=== PATIENT | female | born 1950 | race Caucasian/White ===

== ENCOUNTER 2021-06-01 09:39 | Outpatient (CLI) | payer MEDICARE, SELFPAY ==
--- NOTE | 2021-06-01 09:30 | ECG_ITS ---
Measurements Intervals [place] Rate: 101 P: 67 WA: 143 QRS: 34 QRSD: 90 T: 57 QT: 327 QTc: 424 Interpretive Statements SINUS TACHYCARDIA POSSIBLE LEFT ATRIAL ENLARGEMENT LOW QRS VOLTAGE IN PRECORDIAL LEADS BASELINE ARTIFACT- I, III, AVL, AVF BORDERLINE ECG Electronically Signed On 06-01-2021 12:00:32 CDT by Fermín Plaza D.O.
[2021-06-01 10:33] LABS: Anion Gap 15 mmol/L (8-16); Blood Urea Nitrogen 14 mg/dL (7-17); Calcium 10.1 mg/dL (8.4-10.2); Carbon Dioxide 23 mmol/L (22-30); Chloride 95 mmol/L (98-107); Estimated Glomerular Filt Rate > 60; Glucose 199 mg/dL (65-105); Sodium 133 mmol/L (137-145)
== END 2021-06-01 09:40 | disposition home or self-care (01) ==
LOC: ANHSURGERY 09:43
PROVIDERS: Anesthesiology; PCP Emergency Medicine; Visit Provider Urology
DX: E11.9 Type 2 diabetes mellitus without complications (principal); I10 Essential (primary) hypertension; Z01.818 Encounter for other preprocedural examination; R94.31 Abnormal electrocardiogram [ECG] [EKG]
CPT/HCPCS: 36415; 80048; 87086; 87088; 93005

== ENCOUNTER 2021-06-05 01:49 | Day surgery (SDC) | payer MEDICARE, SELFPAY ==
--- NOTE | 2021-05-27 12:17 | P.HP_ITS ---
H&P: HPI History of Present Illness Date/Time: 05/27/21 12:17 cystocele Chief Complaint: cystocele Review of Systems Review of Systems: All systems reviewed & are unremarkable except as noted in HPI and below [facility] Social History Social History Smoking status: Never smoker Alcohol intake: current Meds Home Medications and Allergies Allergies Allergy/AdvReac Type Severity Reaction Status Date / Time codeine Allergy Severe HEADACHES, Verified 05/27/17 07:40 RASH cortisone Allergy Severe RASH AND Verified 05/27/17 07:40 ITCHING Exam Const: General: cooperative and healthy appearing HENMT: Head: normal to inspection Face and sinus: normal facial exam Eyes: General: appearance normal, both eyes and all related structures Resp: Effort & Inspection: tachypneic : Bimanual Exam- Adnexa, other: cystocele and apex supported Back/Spine/Pelvis: Back: no CVA tenderness Skin: General skin exam: normal color Assessment and Plan Assessment and plan (1) Cystocele: Qualifiers: Cystocele location: midline Qualified Code(s): N81.11 - Cystocele, midline Status: Acute Assessment and Plan: cystocele repair
[2021-05-31 13:38] VITALS: BMI 29.9
--- NOTE | 2021-06-04 14:58 | PM.IMHP ---
H&P: HPI History of Present Illness Date/Time: 06/04/21 14:58 cystocele Robotic SCP/TOT in 2017 Chief Complaint: cystocele Review of Systems Review of Systems: All systems reviewed & are unremarkable except as noted in HPI and below PMF[facility] Social History Social History Smoking status: Never smoker Alcohol intake: current Alcohol use details: TWO DRINKS MONTH Spiritual care concerns: No Meds Home Medications and Allergies Home Medications Medication Instructions Recorded Confirmed Type calcium carbonate [Calcium 600] 1,200 mg PO DAILY 05/31/21 05/31/21 History cetirizine-pseudoephedrine 1 tablet PO BID 05/31/21 05/31/21 History [Zyrtec-D] cholecalciferol (vitamin D3) 50 mcg PO DAILY 05/31/21 05/31/21 History doxycycline hyclate 50 mg PO DAILY 05/31/21 05/31/21 History ezetimibe 10 mg PO QPM 05/31/21 05/31/21 History fenofibrate micronized 134 mg PO QPM 05/31/21 05/31/21 History hydrochlorothiazide 25 mg PO DAILY 05/31/21 05/31/21 History magnesium 15 mg PO DAILY 05/31/21 05/31/21 History metformin 1,000 mg PO DAILY 05/31/21 05/31/21 History metformin 500 mg PO QPM 05/31/21 05/31/21 History pmyazsqobcmp-pbvk-rudua acid 1 tablet PO DAILY 05/31/21 05/31/21 History [Centrum Complete] niacin [Niaspan Extended-Release] 1,000 mg PO QPM 05/31/21 05/31/21 History omeprazole 20 mg PO DAILY 05/31/21 05/31/21 History quinapril 40 mg PO DAILY 05/31/21 05/31/21 History sertraline 50 mg PO HS 05/31/21 05/31/21 History zinc 50 mg PO DAILY 05/31/21 05/31/21 History Allergies Allergy/AdvReac Type Severity Reaction Status Date / Time codeine Allergy Severe HEADACHES, Verified 05/31/21 13:26 RASH cortisone Allergy Severe RASH AND Verified 05/31/21 13:26 ITCHING Exam Const: General: cooperative and healthy appearing HENMT: Head: normal to inspection Face and sinus: normal facial exam Resp: Effort & Inspection: normal respiratory effort : Bimanual Exam- Adnexa, other: cystocele Back/Spine/Pelvis: Back: no CVA tenderness Skin: General skin exam: normal color Assessment and Plan Assessment and plan (1) Cystocele: Status: Acute Assessment and Plan: cystocele repair
[2021-06-05] VITALS (9 sets, daily range): BP systolic 140–171; BP diastolic 68–95; PULSE 72–97; RESP 14–18; TEMP 36.6–36.7; O2SAT 99–100
--- NOTE | 2021-06-05 07:14 | WPDHPUPDATE1 ---
History and Physical Update Update Date/Time: 06/05/21 07:14 History and Physical has been reviewed, including an updated exam of the patient. There are NO changes in the patient's condition. Risks, benefits, and alternatives have been discussed and questions answered. Patient agrees to proceed with procedure.
--- NOTE | 2021-06-05 07:56 | WPDANESEPPF ---
Anes - Initial Pre Proc Eval Procedure: Operation Date: 06/05/21 11:45 Proposed Procedures p Cystocele Repair - Eladio Posada MD Date/Time: 06/05/21 07:56 Surgeon: Eladio Posada MD Pre Op Diagnosis: cystocele Patient Data Age: 70 Gender: F Height: 1.65 m Weight: 81.65 kg Allergies Allergy/AdvReac Type Severity Reaction Status Date / Time codeine Allergy Severe HEADACHES, Verified 06/05/21 10:04 RASH cortisone Allergy Severe RASH AND Verified 06/05/21 10:04 ITCHING Home Medications Medication Instructions Recorded Confirmed Type calcium carbonate [Calcium 600] 1,200 mg PO DAILY 05/31/21 06/05/21 History cetirizine-pseudoephedrine 1 tablet PO BID 05/31/21 06/05/21 History [Zyrtec-D] cholecalciferol (vitamin D3) 50 mcg PO DAILY 05/31/21 06/05/21 History doxycycline hyclate 50 mg PO DAILY 05/31/21 06/05/21 History ezetimibe 10 mg PO QPM 05/31/21 06/05/21 History fenofibrate micronized 134 mg PO QPM 05/31/21 06/05/21 History hydrochlorothiazide 25 mg PO DAILY 05/31/21 06/05/21 History magnesium 15 mg PO DAILY 05/31/21 06/05/21 History metformin 1,000 mg PO DAILY 05/31/21 06/05/21 History metformin 500 mg PO QPM 05/31/21 06/05/21 History qpbmlubpkjeo-itri-xulrt acid 1 tablet PO DAILY 05/31/21 06/05/21 History [Centrum Complete] niacin [Niaspan Extended-Release] 1,000 mg PO QPM 05/31/21 06/05/21 History omeprazole 20 mg PO DAILY 05/31/21 06/05/21 History quinapril 40 mg PO DAILY 05/31/21 06/05/21 History sertraline 50 mg PO HS 05/31/21 06/05/21 History zinc 50 mg PO DAILY 05/31/21 06/05/21 History Patient hx anesthesia problems: none Family hx anesthesia problems: none PMFSH Past Medical History Medical History (Updated 06/05/21 @ 08:01 by ANJALI Blackwell Diabetes type 2, controlled GERD (gastroesophageal reflux disease) Hyperlipidemia Hypertension Osteoarthritis Social History Social History Smoking status: Never smoker Alcohol intake: current Alcohol use details: TWO DRINKS MONTH Living arrangements: with family Spiritual care concerns: No Anes - Eval Final PreProcedure Day of Procedure 06/05/21 07:56 Patient weight: obese Heart: regular rate and rhythm Lungs: clear to auscultation and normal air movement Airway: Mallampati scale class II Neurological: alert and oriented Last oral intake: >/= 8 hours ASA classification: III Emergent: no Anesthetic plan: proceed Anesthesia type and monitoring: general LMA and standard monitoring Informed Consent: The patient's anesthetic plan and its attendant risks and benefits were discussed with the patient/family/POA. Questions were solicited and answers provided to the satisfaction of the patient/family/POA.
[2021-06-05] MEDS: LACTATED RINGERS 1,000 ML 30 ML IV CONT (10:22)
[2021-06-05 10:25] LABS: Glucose Point of Care 140 mg/dl (65-105)
[2021-06-05] MEDS: ceFAZolin 2 GM/D5W 50 ML 2 GM/50 ML BAG IVPB (12:01)
[2021-06-05] MEDS: BUPIVACAINE/EPINEPHRINE 0.25% 50 ML VIAL 30 ML INFILTRATE (12:34)
--- NOTE | 2021-06-05 13:27 | W.PM.PROC2 ---
Procedure Note - Detailed Date of Procedure 06/05/21 Pre-op Diagnosis cystocele, rectocele Post-op Diagnosis same Procedure Performed cystocele repair rectocele repair cystoscopy Surgeon Eladio Posada MD Anesthesia general Indications this is a woman with anterior and posterior vaginal prolapse. She has good apical support. she presents for the above. She understands risks of bleeding, infection, dyspareunia, damage to surrounding organs such as the bladder, ureters, bowel. She understands the risks of postoperative voiding dysfunction including incontinence and retention. She understands risks of dyspareunia and recurrence of prolapse. She agrees to proceed Description of Procedure she was correctly identified. Informed consent obtained. she was brought into the operating room. She was given general anesthesia. She was placed in dorsal lithotomy position. She was prepped and draped in a sterile fashion. Time-out performed. of note she has significant atrophic vaginitis and the possible lichen sclerosis. I placed a [place] retractor. I placed [place] catheter. I grasped the cystocele with Allis clamps. I infiltrated the subcutaneous tissues with local mixed with saline. I made a midline vaginal incision on the anterior vaginal wall. I dissected the mucosa off the underlying fascial structures. I did this laterally and back to the apex. I then performed a standard cystocele plication repair with 0 Vicryl suture. This reduced the cystocele. I trimmed minimal excess vaginal mucosa. I closed the vaginal mucosa with a running 2 0 Vicryl suture. there was excellent reduction of the cystocele. It became also evident she had a moderate degree of rectocele. I grasped the mucosa on the posterior vaginal wall. I again applied local anesthesia mix with saline. I made a midline vaginal incision on the posterior wall. It was quite scarred in this area. I dissected the mucosa off the underlying fascial structures. I did this laterally and back to the apex. There was no sign of any injury to underlying structures. I then performed a plication rectocele repair again with 0 Vicryl suture. I trimmed minimal excess vaginal mucosa. I closed the mucosa with a running 2 0 Vicryl suture. There is excellent support of the rectocele. There is no undue narrowing of the vagina. I then performed cystoscopy. She had moderate trabeculation. There is no other bladder abnormalities. Both ureters were seen to excrete clear yellow urine. She was awakened and transferred to PACU in stable condition Implants none Estimated Blood Loss 10 Drains No Packing No Pathology none sent Complications No immediate complications Condition stable
[2021-06-05 13:44] LABS: Glucose Point of Care 116 mg/dl (65-105)
== END 2021-06-05 14:55 | disposition home or self-care (01) ==
PROVIDERS: PCP Emergency Medicine; Visit Provider Urology
PROC: (CPT 57240; principal; 2021-06-05 11:45)
DX: N81.11 Cystocele, midline (principal); N81.6 Rectocele; N95.2 Postmenopausal atrophic vaginitis; E11.9 Type 2 diabetes mellitus without complications; I10 Essential (primary) hypertension; E78.5 Hyperlipidemia, unspecified; K21.9 Gastro-esophageal reflux disease without esophagitis; M19.90 Unspecified osteoarthritis, unspecified site; E66.9 Obesity, unspecified; Z68.30 Body mass index [BMI] 30.0-30.9, adult; Z79.84 Long term (current) use of oral hypoglycemic drugs
CPT/HCPCS: 57260; 36415; 80048; 82948; 87086; 87088; 93005; A9270; J0690; J2405; J2704; J3010; J7030; J7120

== ENCOUNTER 2022-02-24 10:18 | Emergency (ER) | payer MEDICARE, SELFPAY ==
[2022-02-24 11:06] VITALS: BP 134/78; PULSE 101; RESP 18; TEMP 36.4; O2SAT 99
--- NOTE | 2022-02-24 11:44 | ED.URI ---
HPI - URI/Sore Throat General Chief Complaint: Upper Respiratory Infection Stated Complaint: Sore Throat Time Seen by Provider: 02/24/22 11:25 Source: patient Mode of arrival: ambulatory Limitations: no limitations History of Present Illness HPI Narrative: Azeb Negrete is a 71 yo female with a PMH of HTN, depression, predoabetes, seasonal allergies, to [facility] with a complaints of sore throat that is worsening over the last 3 days but is deep on the right side of her throat. She has had some difficulty swallowing today, which is gravelly and she has a lot of saliva in her mouth Related Data Home Medications Medication Instructions Recorded Confirmed Centrum Complete 1 tablet PO DAILY 05/31/21 02/24/22 cetirizine-pseudoephedrine 1 tablet PO BID 05/31/21 02/24/22 [Zyrtec-D] doxycycline hyclate 50 mg PO DAILY 05/31/21 02/24/22 ezetimibe 10 mg PO QPM 05/31/21 02/24/22 fenofibrate micronized 134 mg PO QPM 05/31/21 02/24/22 hydrochlorothiazide 25 mg PO DAILY 05/31/21 02/24/22 metformin 1,000 mg PO DAILY 05/31/21 02/24/22 metformin 500 mg PO QPM 05/31/21 02/24/22 niacin [Niaspan Extended-Release] 1,000 mg PO QPM 05/31/21 02/24/22 quinapril 40 mg PO DAILY 05/31/21 02/24/22 sertraline 50 mg PO HS 05/31/21 02/24/22 Allergies Allergy/AdvReac Type Severity Reaction Status Date / Time codeine Allergy Severe HEADACHES, Verified 02/24/22 11:07 RASH cortisone Allergy Severe RASH AND Verified 02/24/22 11:07 ITCHING Review of Systems Review of Systems: CONSTITUTIONAL: Denies fever, chills, sweats. EYES: Denies visual changes, redness, discharge. ENT: Denies rhinorrhea, congestion, has sore throat, otalgia. She also has a gravelly voice and a lot of saliva production and difficulty swallowing CARDIOVASCULAR: Denies chest pain, palpitations, edema. RESPIRATORY: Denies dyspnea, wheezing, cough GASTROINTESTINAL: Denies abdominal pain, nausea, vomiting, diarrhea. GENITOURINARY: Denies dysuria, hematuria, abnormal discharge SKIN: Denies rash or itching. NEUROLOGIC: Denies numbness, or focal weakness. PSYCHIATRIC: Denies anxiety or depression. [facility] Past Medical History Medical History Diabetes type 2, controlled GERD (gastroesophageal reflux disease) Hyperlipidemia Hypertension Osteoarthritis Social History Social History Smoking status: Never smoker Alcohol intake: current Alcohol use details: TWO DRINKS MONTH Spiritual care concerns: No Comments At time of signature, I agree with nursing past medical, surgical, social and family history. There is no relevant family history pertinent to the presenting complaint. Exam Narrative: GENERAL: This is a well-nourished, well-developed patient, in mild distress. HEAD: normocephalic, atraumatic. EYES: Sclera clear/white. Vision is grossly intact. EARS: External ears normal, Hearing grossly intact. NOSE: External nose normal without nasal discharge, nares without redness, no rhinorrhea. THROAT: Mucous membranes moist, posterior pharynx swollen and erythematous with pain on the lower right side of the posterior pharynx and esophagus NECK: Neck supple, non-tender CARDIOVASCULAR: Tachycardic rate and rhythm without murmurs, gallops, or rubs. RESPIRATORY: Clear to auscultation. Breath sounds equal bilaterally. No wheezes, rales, or rhonchi. GASTROINTESTINAL: Abdomen soft, non-tender, SKIN: warm, intact with no suspicious lesions or rash, good texture and turgor. NEURO: awake, alert, and oriented to person, place and time. There were no obvious focal neurologic abnormalities. Steady gait EXTREMITIES: Normal range of motion. BACK: Nontender without deformity Course Course Emergency Course: Patient comes with right-sided lower throat pain with difficulty swallowing that is worsening over the last 3 days Strep test is negative but still believe that
[2022-02-24] MEDS: cefTRIAXone 500 MG, LIDOCAINE HCL 1% LOCAL INJ 1 ML IM (12:02)
== END 2022-02-24 12:10 | disposition home or self-care (01) ==
PROVIDERS: Emergency Provider Nurse Practitioner; PCP Nurse Practitioner Family
DX: J36 Peritonsillar abscess (principal); E11.9 Type 2 diabetes mellitus without complications; K21.9 Gastro-esophageal reflux disease without esophagitis; E78.5 Hyperlipidemia, unspecified; I10 Essential (primary) hypertension; M19.90 Unspecified osteoarthritis, unspecified site
CPT/HCPCS: 87081; 87880; 96372; 99214; G0463; J0696; J1100